=== PATIENT | male | born 1950 | race Caucasian/White ===

== ENCOUNTER → 2018-06-11 09:19 | Outpatient (CLI) | payer OTHER, MEDICARE, SELFPAY ==
--- NOTE | 2018-06-11 | DI.ECHO.S_ITS ---
[facility] +---------+ [facility] +---------+ : : [address] : [place] : : : : [id number] : : : : Phone: [phone]---------+ Echocardiogram Report + + :Name: CONNOR FAN Study Date: 06/11/2018 Height: 69 in : :[facility] Weight: 194 lb : : Gender: Male BSA: 2.0 m2 : :: 1950 Age: 68 yrs BP: 150/80 mmHg: :Reason For Study: Cardiomyopathy, Ischemic : : Performed By: Andreia Velazquez : :Referring: CHRISTA SILVA : + + Interpretation Summary The left ventricle is normal in size. The ejection fraction is estimated to be 55-60%. There has been no significant change in LV EF since the previous study. The right ventricle is grossly normal size. The right ventricular systolic function is normal. There is mild tricuspid regurgitation. The right ventricular systolic pressure is estimated to be at least 38 mmHg based on an estimated right atrial pressure of 3 mm Hg. Compared to the prior echo exam, there has been a decrease in the severity of pulmonary hypertension. Procedure: A two-dimensional transthoracic echocardiogram with color flow and Doppler was performed. The study quality was technically adequate. Comparison is made with the echocardiogram of 11-22-17. The patient was in normal sinus rhythm during the exam. Left Ventricle: The left ventricle is normal in size. There is normal left ventricular wall thickness. There is no thrombus. The ejection fraction is estimated to be 55-60%. There has been no significant change since the previous study. There are no obvious focal wall motion abnormalities noted but poor endocardial definition reduces the sensitivity for the detection of such. MV E/A: 0.94 Med Peak E' Vipul: 5.3 cm/sec E/E' med: 17.3. Right Ventricle: The right ventricle is grossly normal size. The right ventricular systolic function is normal. Atria: The left atrium is moderately dilated. The left atrium has remained unchanged in size since the prior echo exam. The right atrium is moderately dilated. The right atrium has mildly decreased in size since the prior echo exam. The interatrial septum is intact with no evidence for an atrial septal defect. The atrial septum is aneurysmal. Mitral Valve: There is mild mitral annular calcification. There is trace mitral regurgitation. Aortic Valve: The aortic valve is trileaflet. The aortic valve opens well. The aortic valve is slightly calcified. No aortic regurgitation is present. Tricuspid Valve: The tricuspid valve leaflets are thin and pliable. There is mild tricuspid regurgitation. The right ventricular systolic pressure is estimated to be at least 38 mmHg based on an estimated right atrial pressure of 3 mm Hg. Compared to the prior echo exam, there has been a decrease in the severity of pulmonary hypertension. Pulmonic Valve: The pulmonic valve is normal in structure and function. There is trace pulmonic regurgitation. Great Vessels: The aortic root is normal size. The ascending aorta is at the upper limits of normal in size. The aortic arch is at the upper limits of normal in size. The IVC is of normal diameter and collapses greater than 50% with a sniff. This suggests a low right atrial pressure of 3 mm Hg. Pericardium/ Pleura There is no pericardial effusion. There is no pleural effusion. MMode/2D Measurements & Calculations LVIDd: 5.0 cm Ao root diam: 3.8 cm LVIDs: 3.8 cm Aortic Jxn: 2.8 cm FS: 23.0 % asc Aorta Diam: 3.5 cm EPSS: 0.93 cm Ao Arch Diam (Prox Trans): 3.3 cm IVSd: 0.92 cm LVPWd: 0.80 cm LV vanessa. diameter/BSA (cm/m^2): 2.4 LV sys. diameter/BSA (cm/m^2): 1.9 LA dimension: 4.5 cm RA long axis: 5.8 cm LA A2 area: 27.2 cm2 RA area: 25.0 cm2 LA A4 area: 24.7 cm2 RA vol: 91.1 ml LA length (vol): 5.8 cm RA : 44.7 ml/m2 LA vol: 97.8 ml IVC diam: 1.8 cm LA vol index: 48.0 ml/m2 RVDd major: 5.8 cm RVD1 (basal): 4.3 cm RVD2 (mid): 3.8 cm Doppler Measurements & Calculations Ao V2 max: 127.2 cm/sec MV E max vipul: 90.9 cm/sec Ao V2 mean: 74.6 cm/sec MV A max vipul: 97.0 cm/sec Ao max P.5 mmHg MV E/A: 0.94 Ao mean P.9 mmHg Med Peak E' Vipul: 5.3 cm/sec Ao V2 VTI: 24.0 cm E/E' med: 17.3 Lat Peak E' Vipul: 8.2 cm/sec E/E' lat: 11.1 E/e' average: 14.2 MV dec time: 0.20 sec MV P1/2t: 60.7 msec TR max vipul: 296.3 cm/sec MV P1/2t max vipul: 91.2 cm/sec TR max P.1 mmHg MVA(P1/2t): 3.6 cm2 PA V2 max: 75.1 cm/sec PA V2 mean: 46.5 cm/sec PA mean P.0 mmHg PA Accel Time: 0.09 sec Reading Physician:DAMARIS
== END ==
PROVIDERS: PCP Nurse Practitioner Adult Health; Visit Provider Nurse Practitioner Adult Health
DX: I25.9 Chronic ischemic heart disease, unspecified (principal)
CPT/HCPCS: 93306

== ENCOUNTER → 2019-07-29 07:00 | Outpatient (CLI) | payer OTHER, SELFPAY ==
--- NOTE | 2019-07-29 | DI.ECHO.S_ITS ---
[place] +---------+ Hospital +---------+ : : [address] [place] : : : : [id number] : : : : Phone: [phone]+ Echocardiogram Report + + :Name: CONNOR FAN Study Date: 07/29/2019 Height: 69 in : :[facility] Exam Location: [facility] Weight: 216 lb : : Gender: Male BSA: 2.1 m2 : :: 1950 Age: 69 yrs BP: 130/83 mmHg: :Reason For Study: Chronic ischemic heart disease : : Performed By: Haleigh Page : :Referring: GEOVANNA COLE : + + Interpretation Summary Normal sinus rhythm. Normal LV size, wall thickness, wall motion and LV systolic function. EF is 55-60%. Severe biatrial enlargement; there is aneurysmal interatrial septum without obvious shunting. Mild MAC with trace associated MR. There is aortic sclerosis without stenosis. Compared to prior study 06/11/2018 no significant changes have occurred. Procedure: A two-dimensional transthoracic echocardiogram with color flow and Doppler was performed. The study quality was technically adequate. Comparison is made with the echocardiogram of 06/11/2018. The patient was in normal sinus rhythm during the exam. Left Ventricle: The left ventricle is normal in size, wall thickness, and systolic function without any focal wall motion abnormalities. Trabeculae near apex are visualized. No thrombus is observed. The ejection fraction is estimated to be 55-60%. Diastolic parameters suggest a pseudonormalization pattern, consistent with probable elevated filling pressures. Right Ventricle: The right ventricle is normal in size and function. Atria: Both atria are severely dilated. There is no Doppler evidence for an interatrial shunt. The atrial septum is aneurysmal. Mitral Valve: The mitral valve leaflets are mildly calcified. There is trace mitral regurgitation. Aortic Valve: The aortic valve is trileaflet. The aortic valve is mildly calcified. There is no aortic valve stenosis. No aortic regurgitation is present. Tricuspid Valve: The tricuspid valve is normal in structure and function. There is a trace or physiologic amount of tricuspid regurgitation. The right ventricular systolic pressure is estimated to be at least 33 mmHg based on an estimated right atrial pressure of 3 mm Hg. Pulmonic Valve: The pulmonic valve is not well seen, but is grossly normal. There is trace pulmonic regurgitation. Great Vessels: The aortic root is normal size. The ascending aorta is mildly enlarged. The pulmonary artery is normal size. The IVC is dilated (diameter is greater than 2.1 cm) and it collapses less than 50% with a sniff. This suggests a high right atrial pressure of 15 mm Hg. Pericardium/ Pleura There is no pericardial effusion. There is no pleural effusion. MMode/2D Measurements & Calculations LVIDd: 4.8 cm LVOT diam: 2.5 cm LVIDs: 3.6 cm Ao root diam: 3.9 cm FS: 25.8 % asc Aorta Diam: 3.6 cm EPSS: 0.89 cm IVSd: 0.80 cm LVPWd: 0.80 cm LV vanessa. diameter/BSA (cm/m^2): 2.3 LV sys. diameter/BSA (cm/m^2): 1.7 LA A2 area: 26.0 cm2 RA long axis: 5.7 cm LA A4 area: 29.8 cm2 RA area: 27.8 cm2 LA length (vol): 6.1 cm RA vol: 115.5 ml LA vol: 107.4 ml RA : 54.1 ml/m2 LA vol index: 50.3 ml/m2 IVC diam: 1.6 cm RVD1 (basal): 4.4 cm Doppler Measurements & Calculations Ao V2 max: 103.9 cm/sec LVOT Max Vipul: 79.7 cm/sec Ao V2 mean: 74.8 cm/sec LV V1 max P.5 mmHg Ao max P.3 mmHg LV V1 VTI: 16.3 cm Ao mean P.4 mmHg AMANDA(I,D): 3.7 cm2 Ao V2 VTI: 21.2 cm AMANDA(V,D): 3.7 cm2 sev ratio: 0.77 AMANDA indexed to BSA (cm^2/m^2): 1.7 MV E max vipul: 93.2 cm/sec TR max vipul: 287.1 cm/sec MV A max vipul: 83.1 cm/sec TR max P.0 mmHg MV E/A: 1.1 PA V2 max: 66.9 cm/sec Med Peak E' Vipul: 5.7 cm/sec PA V2 mean: 45.0 cm/sec E/E' med: 16.4 PA mean P.90 mmHg Lat Peak E' Vipul: 8.5 cm/sec E/E' lat: 10.9 E/e' average: 13.7 MV dec time: 0.20 sec MV P1/2t: 60.9 msec MV P1/2t max vipul: 93.3 cm/sec SV(LVOT): 78.0 ml MVA(P1/2t): 3.6 cm2 Electronically signed by: Mei Butcher M.D. on Reading Physician:07/29/2019 08:00 PM
[2019-07-29 07:25] LABS: Bacteria Urine None Seen; RBC Urine None Seen (0-5/HPF)
[2019-07-29 08:13] LABS: Appearance Urine UA CLEAR; Bilirubin Urine UA NEGATIVE (NEGATIVE); Color Urine UA YELLOW; Glucose Urine UA NEGATIVE (Negative); Ketones Urine UA TRACE (NEGATIVE); Leukocyte Esterase Urine UA 2+ (NEGATIVE); Nitrite Urine UA NEGATIVE (Negative); Occult Blood Urine UA NEGATIVE (Negative); Protein Urine UA NEGATIVE (Negative); Specific Gravity Urine UA 1.025 (1.000-1.035); Urobilinogen Urine UA 0.2 E.U./dL (0.2)
[2019-07-29 08:22] LABS: Culture Indicated Urine Specimen Cultured; WBC Urine 5-10/HPF (0-5/HPF)
[2019-07-29 08:55] LABS: Creatinine Urine Random 156.3 mg/dL
[2019-07-29 08:57] LABS: Alanine Aminotransferase 5 IU/L (<50); Albumin Globulin Ratio 1.4 (1.0-2.8); Alkaline Phosphatase 79 U/L (38-126); Aspartate Aminotransferase 21 IU/L (17-59); BUN Creatinine Ratio 23.8 (6-22); Bilirubin Total 0.4 mg/dL (0.2-1.3); Blood Urea Nitrogen 19 mg/dL (9-20); Calcium 9.4 mg/dL (8.4-10.2); Carbon Dioxide 27 mmol/L (22-32); Chloride 103 mmol/L (98-107); Estimated Glomerular Filt Rate > 60.0 mL/min (>60); Globulin 2.8 g/dL (1.7-4.1); Glucose 166 mg/dL (80-110); HEMOLYSIS < 15 (0-50); Potassium 4.5 mmol/L (3.4-5.1); Sodium 140 mmol/L (137-145); Total Protein 6.8 g/dL (6.3-8.2)
[2019-07-29 08:59] LABS: Microalbumi Creatinin Ratio Ur 8.9 ug/mg CR (<30); Microalbumin Urine Random 1.4 mg/dL (0-1.6)
== END ==
PROVIDERS: PCP Hospitalist; Referring Provider Orthopaedic Surgery; Visit Provider Orthopaedic Surgery
DX: I25.9 Chronic ischemic heart disease, unspecified (principal); E11.9 Type 2 diabetes mellitus without complications; I77.89 Other specified disorders of arteries and arterioles; I51.7 Cardiomegaly; I25.3 Aneurysm of heart
CPT/HCPCS: 36415; 80053; 81001; 82043; 82570; 87077; 87086; 93306